=== PATIENT | male | born 1960 | race Caucasian/White ===

== ENCOUNTER 2018-05-29 14:45 | Emergency (ER) | payer OTHER ==
[2018-05-29] MEDS ORDERED: Sodium Chloride 0.9% 1000 ML 1,000 ML IV STA (15:05)
[2018-05-29] MEDS ORDERED: Pepcid 20 MG VIAL IV ONE ×2 (15:05→15:16)
[2018-05-29] MEDS ORDERED: TORAdol 30 mg Injection IV ONE (15:05)
[2018-05-29] MEDS ORDERED: Zofran 4 MG/2 ML VIAL IV ONE (15:05)
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
[2018-05-29] MEDS ORDERED: Zofran 4 MG/2 ML VIAL ONE (15:15)
[2018-05-29] MEDS ORDERED: TORAdol 30 mg Injection ONE (15:15)
[2018-05-29] MEDS ORDERED: Sodium Chloride 0.9% 1000 ML 1,000 ML ONE (15:16)
[2018-05-29 15:21] LABS: BASOPHIL % 0.6 % (0.0-0.4); Basophil (Absolute #) 0.06 (0-0.4); Eosinophil % 0.7 % (0.00-5.0); Eosinophil (Absolute #) 0.07 (0-0.5); Granulocyte Absolute (ANC) 7.11 (1.4-6.9); Granulocytes % 71.8 % (36.0-66.0); Hematocrit 38.7 % (42-50); Hemoglobin 12.3 gm/dl (12.5-18.0); Lymphocyte (Absolute #) 1.68 (1.0-4.6); Mean Cell Volume 91.3 fl (78-100); Mean Corpuscular Hgb Concent. 31.8 g/dl (32-36); Mean Platelet Volume 9.8 fl (6-9.5); Monocyte (Absolute #) 0.98 (0.0-1.3); Monocytes % 9.9 % (0.0-12.0); Platelet Count 304 K/mm3 (150-450); Red Blood Count 4.24 M/mm3 (4.1-5.6); Red Cell Distribution Width 14.8 % (11.5-14.0); White Blood Count 9.9 K/mm3 (4.0-10.5)
[2018-05-29 15:39] LABS: INR 1.16 (0.8-3.0)
[2018-05-29 15:49] LABS: Appearance HAZY (CLEAR); Bilirubin NEGATIVE (NEGATIVE); Blood 50 Ery/ul (0-5); Glucose NEGATIVE (NEGATIVE); Ketones NEGATIVE (NEGATIVE); Leukocyte Esterase NEGATIVE (NEGATIVE); Nitrite NEGATIVE (NEGATIVE); Protein,Urine Dip 500 (Negative); Specific Gravity 1.025 (1.005-1.025); Urobilinogen NORMAL mg/dL (0-1)
[2018-05-29 15:50] LABS: Bacteria FEW /HPF (NEGATIVE); Epithelial Cells RARE /HPF (FEW); Mucus SLIGHT /HPF (NEGATIVE); RBC 15-25 /HPF (0-2); WBC 0-2 /HPF (0-5)
[2018-05-29 15:55] VITALS: O2SAT 97
[2018-05-29 15:56] LABS: ALBUMIN 4.2 g/dL (3.5-5.0); ANION GAP 14.5 MEQ/L (5-15); BILIRUBIN,TOTAL 0.5 mg/dL (0.2-1.3); Calcium 10.1 mg/dL (8.4-10.2); Creatinine 1 1.47 mg/dL (0.66-1.25); Potassium 4.2 mmol/L (3.5-5.1); Total Protein 7.4 g/dL (6.3-8.2)
[2018-05-29 16:06] LABS: Barbiturate,Urine NEGATIVE (NEGATIVE); Benzodiazepine,Urine NEGATIVE (NEGATIVE); Cocaine,Urine NEGATIVE (NEGATIVE); Methadone,Urine NEGATIVE (NEGATIVE); Opiate,Urine POSITIVE (NEGATIVE); PCP,Urine NEGATIVE (NEGATIVE); THC,Urine NEGATIVE (NEGATIVE)
--- NOTE | 2018-05-29 16:34 | XRAY ---
Indication: Right flank pain. Unable to urinate. History renal cysts. Multiple contiguous axial images obtained through the abdomen and pelvis without contrast using renal stone protocol. Comparison: None Lung bases demonstrates minimal bibasilar dependent atelectasis and tiny left posterior gutter calcified granuloma. No infiltrate or effusion. Heart is not enlarged. There is a 3-4 mm left posterior urinary bladder calculus. Left ureter is prominent and there is mild left-sided hydronephrosis with minimal perinephric stranding presumed from recent partial obstructive uropathy. 2 punctate calculi in the left lower renal calyx and 1 punctate calculus in the right mid kidney. 8 mm right adrenal adenoma. Noncontrasted stomach and bowel loops appear nonobstructed. Normal appendix. No free fluid/air. Remaining liver, gallbladder, pancreas, spleen, adrenal glands, and bladder appear unremarkable for noncontrast exam. Mild aortoiliac calcifications without AAA. Small subcentimeter periaortic nodes, none pathologically enlarged. Osseous structures intact with mild spinal degenerative changes, greatest at the lumbosacral junction. Small fatty umbilical hernia. Impression: 1. 3-4 mm urinary bladder calculus. Mild left-sided hydronephrosis, perinephric stranding, and mild hydroureter presumed from recent passage of said calculus. Additional bilateral renal micro-calculi. 2. Incidental 8 mm right adrenal adenoma and small fatty umbilical hernia. CTDI 22.89
[2018-05-29 16:44] LABS: Amphetamine,Urine POSITIVE (NEGATIVE)
[2018-05-29] MEDS ORDERED: Flomax 0.4 MG ONE (16:54)
[2018-05-29 16:59] VITALS: BP 132/93; PULSE 94
[2018-05-30] MEDS ORDERED: Flomax 0.4 MG PO ONE (16:53)
== END 2018-05-29 17:12 | disposition home or self-care (01) ==
LOC: ED 14:45
DX: N13.2 Hydronephrosis with renal and ureteral calculous obstruction (principal); R11.0 Nausea; R19.7 Diarrhea, unspecified
CPT/HCPCS: 36000; 36415; 74176; 80053; 80307; 81000; 83690; 85025; 85610; 87086; 96360; 96374; 96375; 99284; J1885; J2405; A9270-GY